=== PATIENT | female | born 1960 | race American Indian/Alaskan Native ===

== ENCOUNTER 2022-01-28 10:03 | Outpatient (CLI) | payer MEDICARE | END 2022-01-28 10:04 | disposition home or self-care (01) | LOC: MAMMO 10:03 | PROVIDERS: ATTEND Family Medicine | DX: Z12.31 Encounter for screening mammogram for malignant neoplasm of breast (principal) | CPT/HCPCS: 77067 ==

== ENCOUNTER 2022-03-01 15:13 | Emergency (ER) | payer MEDICARE ==
[2022-03-01 15:34] VITALS: BP 99/64
--- NOTE | 2022-03-01 16:12 | XRay Report ---
CHEST 2 VIEWS INDICATION / CLINICAL INFORMATION: Cough. Diarrhea. COMPARISON: None available. FINDINGS: SUPPORT DEVICES: None. HEART / MEDIASTINUM: The heart size and pulmonary vasculature are normal. LUNGS / PLEURA: No significant pulmonary or pleural abnormality. No pneumothorax. ADDITIONAL FINDINGS: No significant additional findings. IMPRESSION: No acute findings. Signer Name: Carlos Castillo MD Signed: 03/01/2022 4:07 PM Workstation Name: [employer]
== END 2022-03-01 18:16 | disposition left against medical advice (07) ==
LOC: ED 15:13
DX: R05.9 Cough, unspecified (principal); Z53.21 Procedure and treatment not carried out due to patient leaving prior to being seen by health care provider
CPT/HCPCS: 71046